=== PATIENT | male | born 2000 | race Two or more races ===

== ENCOUNTER 2024-11-25 18:22 | Emergency (ER) | payer OTHER ==
[~2024-11-25] VITALS: Ht 165.1 cm; Wt 71.8 kg
[2024-11-25 18:32] VITALS: BP 105/63; PULSE 99; RESP 18; TEMP 98.6; O2SAT 99
[2024-11-25] MEDS ORDERED: ALBU18HF12 IH (18:38)
[2024-11-25] MEDS ORDERED: DICY-1 PO (18:38)
[2024-11-25] MEDS ORDERED: FLUT16H NASAL (18:43)
[2024-11-25] MEDS ORDERED: FEXO-236 PO (18:43)
[2024-11-25] MEDS ORDERED: AMMO225L14 TP (18:43)
[2024-11-25 19:04] LABS: COVID AG,FIA SOURCE NASAL SWAB
[2024-11-25] MEDS ORDERED: ACETAMINOPHEN 120 MG RECTAL SUPPOSITORY PR ONE (19:30)
[2024-11-25 19:33] LABS: SARS-COV2 (COVID) ANTIGEN,FIA Negative (Negative)
[2024-11-25 19:34] LABS: INFLUENZA TYPE A NEGATIVE FOR TYPE A (NEGATIVE); INFLUENZA TYPE B NEGATIVE FOR TYPE B (NEGATIVE)
[2024-11-25] MEDS: ONDANSETRON HCL 4 MG/2 ML VIAL IVP ONE (20:13)
[2024-11-25] MEDS: OMEPRAZOLE 20 MG CAPSULE PO ONE (20:13)
[2024-11-25] MEDS: SODIUM CHLORIDE 0.9% 2,000 ML IV ONE (20:13)
[2024-11-25 20:19] LABS: PLATELET COUNT (AUTO) 221 K/uL (150-450); RED BLOOD CELL COUNT(AUTO) 4.83 MIL/uL (4.50-5.90); RED CELL DISTRIBUTION WIDTH 14.1 % (11.5-14.5); WHITE BLOOD COUNT (AUTO) 9.4 K/uL (4.5-11.0)
[2024-11-25 20:27] LABS: CALCIUM, TOTAL 8.6 mg/dL (8.8-10.5); CREATININE 0.82 mg/dL (0.60-1.30); GLOMERULAR FILTR. RATE CALC > 60 mL/min (>60); GLUCOSE,RANDOM 86 mg/dL (70-110); SODIUM SERUM 137 mmol/L (136-145); UREA NITROGEN, BLOOD 12 mg/dL (7-18)
[2024-11-25] MEDS: ACETAMINOPHEN 500 MG TABLET PO ONE (20:53)
[2024-11-25] MEDS ORDERED: ACET-66 PO (21:21)
[2024-11-25] MEDS ORDERED: OMEP-148 PO (21:21)
[2024-11-25] MEDS ORDERED: ONDA-104 PO (21:21)
[2024-11-25] MEDS ORDERED: GUAIFDM PO (21:22)
== END 2024-11-25 22:06 | disposition home or self-care (01) ==
LOC: EMS 18:22
DX: J06.9 Acute upper respiratory infection, unspecified (principal); K52.9 Noninfective gastroenteritis and colitis, unspecified; J45.909 Unspecified asthma, uncomplicated; Z88.6 Allergy status to analgesic agent; Z79.899 Other long term (current) drug therapy; Z20.822 Contact with and (suspected) exposure to COVID-19
CPT/HCPCS: 99283; 96374; 87426; 80048; 85025; 87804; 36415; J2405; J7030